=== PATIENT | female | born 1970 | race Caucasian/White ===

== ENCOUNTER 2021-11-23 12:08 | Outpatient (CLI) | payer BC, SELFPAY ==
--- NOTE | 2021-11-23 12:09 | US_ITS ---
STUDY: ULTRASOUND OF THE FEMALE PELVIS - COMPLETE REASON FOR EXAM: Female, 51 years old. Postmenopausal bleeding. LMP: The patient is postmenopausal. TECHNIQUE: Transabdominal and Transvaginal TECHNICAL QUALITY: Adequate. COMPARISON: None. FINDINGS: The uterus is retroverted and is in a midline position. The uterus measures 9.9 cm x 5.3 cm x 3.9 cm. Normal uterine cervix. The endometrium measures 6.5 mm in thickness, and is hyperechoic. There is no demonstrated endometrial mass. 2 uterine fibroids are seen. The larger measures 2.1 cm x 1.8 cm x 1.7 cm. I.U.D. - The patient does not have an I.U.D. The right ovary is non-visualized. The left ovary is visualized. The left ovary measures 2.9 cm x 1.4 cm x 1.5 cm. There is no left ovarian cyst or ovarian mass. There is no visualized left adnexal mass or complex lesion. There is normal arterial and normal venous vascularity. There is no fluid in the cul-de-sac. The pre void volume of the bladder was 281 ml. US/Transvaginal Non- IMPRESSION: There are 2 uterine fibroids. Electronically Signed: Gabriel Sanford MD at 13:17 EDT ,
--- NOTE | 2021-11-23 12:09 | US_ITS ---
STUDY: ULTRASOUND OF THE FEMALE PELVIS - COMPLETE REASON FOR EXAM: Female, 51 years old. Postmenopausal bleeding. LMP: The patient is postmenopausal. TECHNIQUE: Transabdominal and Transvaginal TECHNICAL QUALITY: Adequate. COMPARISON: None. FINDINGS: The uterus is retroverted and is in a midline position. The uterus measures 9.9 cm x 5.3 cm x 3.9 cm. Normal uterine cervix. The endometrium measures 6.5 mm in thickness, and is hyperechoic. There is no demonstrated endometrial mass. 2 uterine fibroids are seen. The larger measures 2.1 cm x 1.8 cm x 1.7 cm. I.U.D. - The patient does not have an I.U.D. The right ovary is non-visualized. The left ovary is visualized. The left ovary measures 2.9 cm x 1.4 cm x 1.5 cm. There is no left ovarian cyst or ovarian mass. There is no visualized left adnexal mass or complex lesion. There is normal arterial and normal venous vascularity. There is no fluid in the cul-de-sac. The pre void volume of the bladder was 281 ml. US/Pelvic (Non ) IMPRESSION: There are 2 uterine fibroids. Electronically Signed: Gabriel Sanford MD at 13:17 EDT ,
--- NOTE | 2021-11-23 12:14 | BI_ITS ---
MAMMOGRAPHY - BILATERAL SCREENING REASON FOR EXAM: Female, 51 years old. Routine annual screening examination. PERTINENT HISTORY: Non-contributory. TECHNIQUE: Digital bilateral breast staci (3D mammographic acquisition) in the CC and MLO projections. 2-D mediolateral oblique (MLO) and craniocaudad (CC) views of both breasts were obtained. CAD: Full Field Digital Mammography with Computer Added Detection was performed. COMPARISON: Comparison is made with prior outside examination of 11/29/2017. FINDINGS: Breast Composition: The breasts are heterogeneously dense, which may obscure small masses. There is an 8.7 mm x 9 mm nodule in the mid upper lateral aspect of the left breast. Correlation with ultrasound is recommended. No other significant abnormalities are identified. BI/SCRN MAMM (CAD)W/STACI BILAT IMPRESSION: 8.7 mm x 9 mm nodule in the mid upper lateral aspect of the left breast. Correlation with ultrasound is recommended. ASSESSMENT CATEGORY: BIRADS Category 0: Incomplete. Need additional imaging evaluation. A letter regarding these results will be sent to the patient by the facility within 30 days. Approximately 10% of breast cancers are not detected by mammography. A normal mammogram should not delay biopsy of a clinically suspicious abnormality. [id number] Electronically Signed: Gabriel Sanford MD at 14:07 EDT ,
[2021-11-23 12:31] LABS: Hemoglobin A1c 5.1 % (3.8-5.6)
[2021-11-23 12:38] LABS: Progesterone Level 0.65 ng/mL (See Comment)
[2021-11-23 13:08] LABS: Cholesterol 256 mg/dL (200); Estradiol 112.7 pg/mL; Follicle Stimulating Hormone 42.8 mIU/mL; High Density Lipoprotein 80 mg/dL; Luteinizing Hormone 27.2 mIU/mL; Thyroid Stim Hormone (TSH) 2.56 uIU/mL (0.358-3.74); Triglycerides 55 mg/dL; Very Low Density Lipoprotein 11 mg/dL (5-40)
== END 2021-11-23 23:59 | disposition home or self-care (01) ==
LOC: US 12:09
PROVIDERS: PCP Family Medicine; Referring Provider Obstetrics & Gynecology; Visit Provider Obstetrics & Gynecology
DX: N95.0 Postmenopausal bleeding (principal); Z12.31 Encounter for screening mammogram for malignant neoplasm of breast; Z78.0 Asymptomatic menopausal state; Z13.1 Encounter for screening for diabetes mellitus; Z13.220 Encounter for screening for lipoid disorders
CPT/HCPCS: 36415; 76830; 76856; 77063; 77067; 80061; 82670; 83001; 83002; 83036; 84144; 84443

== ENCOUNTER 2021-11-29 08:56 | Outpatient (CLI) | payer BC, SELFPAY ==
--- NOTE | 2021-11-29 08:58 | US_ITS ---
STUDY: ULTRASOUND BREAST - LEFT REASON FOR EXAM: Female, 51 years old. Abnormal screening mammogram. TECHNIQUE: Axial and longitudinal images of the LEFT breast were performed with a high resolution ultrasound transducer. # OF IMAGES: 36 COMPARISON: Comparison is made with prior mammogram dated 11/23/2021. FINDINGS: LEFT Breast: The upper outer quadrant of the left breast was examined with ultrasound. There is evidence of dilated ducts. No solid or cystic mass lesion is seen. Additional mammographic views will be obtained. US/Breast Limited Unilateral IMPRESSION: Dilated ducts in the upper outer quadrant of the left breast. The patient will be recalled for additional mammographic views. ASSESSMENT CATEGORY: BIRADS Category 0: Incomplete. Need additional imaging evaluation. A letter regarding these results will be sent to the patient by the facility within 30 days. Electronically Signed: Gabriel Sanford MD at 15:30 EDT ,
--- NOTE | 2021-11-29 09:18 | BI_ITS ---
MAMMOGRAPHY - UNILATERAL DIAGNOSTIC: LEFT BREAST REASON FOR EXAM: Female, 51 years old. Abnormal screening mammogram. PERTINENT HISTORY: Non-contributory. TECHNIQUE: 90 degree lateral view as well as compression spot views and rolled medial and lateral views of the right breast were obtained. CAD: Full Field Digital Mammography with Computer Added Detection was performed. COMPARISON: Comparison is made with prior mammogram dated 11/23/2021. FINDINGS: Breast Composition: The breasts are heterogeneously dense, which may obscure small masses. Persistent 9 mm nodule in the mid upper lateral aspect of the left breast. This was not well seen on recent sonogram. A biopsy is recommended. No other significant abnormalities are identified. BI/DIAG MAMM W/CAD, UNILAT IMPRESSION: Persistent 9 mm nodule in the mid upper lateral aspect of the left breast as described. Biopsy recommended. ASSESSMENT CATEGORY: BIRADS Category 4: Suspicious - Biopsy Should Be Considered. A letter regarding these results will be sent to the patient by the facility within 30 days. Approximately 10% of breast cancers are not detected by mammography. A normal mammogram should not delay biopsy of a clinically suspicious abnormality. Electronically Signed: Gabriel Sanford MD at 10:53 EDT ,
== END 2021-11-29 23:59 | disposition home or self-care (01) ==
PROVIDERS: PCP Family Medicine; Visit Provider Obstetrics & Gynecology
DX: R92.2 Inconclusive mammogram (principal)
CPT/HCPCS: 76642; 77065

== ENCOUNTER 2021-12-09 10:41 | Outpatient (CLI) | payer BC, SELFPAY ==
--- NOTE | 2021-12-09 11:00 | BRBX_PTH ---
PATIENT: MEGAN BATISTA LOC: [facility] U#:[id number] AGE/SX: 51/F ROOM: RE12/09/[address]: Dr. Jb Green MD : 1970 BED: DIS: 12/09/2021 SPEC #: [id number] RECD: 12/09/21 11:33 STATUS: CARYL HERRERA #: [id number] BENJAMIN: 12/09/21 11:[address]: Jb Green DEPT: SURGICAL PATHOLOGY RECD BY: Anahi Kirkland ENTERED: 12/09/21 12:31 SP TYPE: BREAST BX OTHR DR: Dr. Gustavo Singh MD Tissues: Left breast, NOS Procedures: Surgery Specimen Level IV HEADER OPERATION: Left breast stereotactic biopsy PRE-OP DIAGNOSIS: 9 mm nodule with mid upper lateral aspect of left breast TISSUE SUBMITTED: Left breast core tissue ISCHEMIC TIME: 1 minute FIXATION TIME: 8.5 hours MICROSCOPIC DIAGNOSIS Left breast, stereotactic core biopsy: Fibrocystic changes and mild intraductal hyperplasia without atypia. Negative for malignancy. See comment. UJANA:josefa 12/10/2021 COMMENT Correlation with clinical, radiologic findings and appropriate follow up are necessary. MICROSCOPIC DESCRIPTION Slides are reviewed. GROSS DESCRIPTION Received in fixative is one container labeled with the patient's name and designated left breast. The specimen consists of multiple irregular fragments of zazueta-white soft tissue that in aggregate measure 2.5 x 2.5 x 0.2 cm. The specimen is totally submitted in one cassette. / AM:josefa 12/09/2021 TC:5 CPT: 36111
--- NOTE | 2021-12-09 11:57 | PCM.OPRPT ---
Problems Associated Problem List Diagnoses (1) Abnormal mammogram of left breast: Report of Operation Date of Procedure: 12/09/21 Pre-Operative Diagnosis: Abnormal mammogram of left breast Post-Operative Diagnosis: Same Surgery/Procedure Performed:: Stereotactic guided core needle biopsy of the left breast with placement of clip Specimen's removed: Left breast biopsy Description of Procedure: Patient was placed in the stereotactic table and the left breast lesion was localized. Stereotactic views were obtained and the mass was localized. Next the breast was prepped and draped in usual sterile fashion and an area of skin was injected with local anesthetic. A small patricia was made in the skin with a scalpel. The needle was placed into the breast and fired into the position. Stereotactic views were then once again obtained and then biopsies were obtained. Next a clip was placed into the mass. The needle was then removed and pressure was held over the breast and then a Steri-Strip and bandage were applied.
== END 2021-12-09 23:59 | disposition home or self-care (01) ==
LOC: BIRAD 10:42
PROVIDERS: PCP Family Medicine; Visit Provider Surgery
DX: N60.12 Diffuse cystic mastopathy of left breast (principal)
CPT/HCPCS: 19081; 88305; J7050; A4648

== ENCOUNTER → 2022-07-18 | Outpatient (CLI) | payer BC, SELFPAY ==
--- NOTE | 2022-07-18 14:18 | BI_ITS ---
MAMMOGRAPHY - UNILATERAL DIAGNOSTIC: LEFT BREAST REASON FOR EXAM: Female, 52 years old. 6 month follow-up examination following left stereotactic breast biopsy. PERTINENT HISTORY: Non-contributory. TECHNIQUE: Digital unilateral breast mana (3D mammographic acquisition) in the CC and MLO projections. 2-D mediolateral oblique (MLO) and craniocaudad (CC) views of both breasts were obtained. CAD: Full Field Digital Mammography with Computer Added Detection was performed. COMPARISON: Comparison is made with prior study dated 11/23/2021 and 11/29/2021. FINDINGS: Breast Composition: The breasts are heterogeneously dense, which may obscure small masses. A tissue clip marker is seen within a 7 mm nodular density in the deep upper lateral aspect of the left breast. No other significant abnormalities are identified. BI/DIAG MAMM W/CAD, UNILAT IMPRESSION: Stable unilateral diagnostic mammogram. One year follow-up mammogram recommended. (A) ASSESSMENT CATEGORY: BIRADS Category 2: Benign. A letter regarding these results will be sent to the patient by the facility within 30 days. Approximately 10% of breast cancers are not detected by mammography. A normal mammogram should not delay biopsy of a clinically suspicious abnormality. Electronically Signed: Gabriel Sanford MD at 15:33 EST ,
== END | disposition home or self-care (01) ==
PROVIDERS: PCP Family Medicine; Visit Provider Surgery
DX: R92.8 Other abnormal and inconclusive findings on diagnostic imaging of breast (principal); R92.2 Inconclusive mammogram
CPT/HCPCS: 77061; 77065; G0279